=== PATIENT | female | born 1995 ===

== ENCOUNTER 2020-11-28 07:04 | Outpatient (CLI) | payer OTHER | END 2020-11-28 07:36 | disposition home or self-care (01) | LOC: LAB 07:04 | PROVIDERS: ATTEND Internal Medicine Endocrinology, Diabetes & Metabolism | DX: Z20.822 Contact with and (suspected) exposure to COVID-19 (principal); Z20.828 Contact with and (suspected) exposure to other viral communicable diseases ==